=== PATIENT | female | born 1980 | race Caucasian/White ===

== ENCOUNTER 2019-08-13 07:08 | Outpatient (RCR) | payer MEDICAID ==
[~2019-08-13] VITALS: Ht 160 cm; Wt 67.0 kg
[~2019-08-13 07:08] MED LIST: DICY10CA12 PO; ESTR1TAB27 PO; GOLI50DI SQ; LURA40TA3 PO; MAGN400C PO; MELO15TA39 PO; MIRT45TA3 PO; OMEP20CA18 PO
== END 2019-08-13 15:47 | disposition home or self-care (01) ==
LOC: PREOP 07:08
PROVIDERS: ATTEND Urology
DX: Z01.818 Encounter for other preprocedural examination (principal); Z11.59 Encounter for screening for other viral diseases
CPT/HCPCS: 87635

== ENCOUNTER 2019-08-18 06:48 | Day surgery (SDC) | payer MEDICAID ==
[2019-08-18] VITALS (9 sets, daily range): BP systolic 97–119; BP diastolic 61–80
[~2019-08-18] VITALS: Ht 160 cm; Wt 67.0 kg
--- OUTSIDE RECORDS SUMMARY | 2019-08-18 06:53 | XMS REPORT | Continuity of Care Document ---
Author Organization Unknown Address Unknown Phone Unavailable Allergies Active Description Code Type Severity Reaction Onset Reported/Identified Relationship to Patient Clinical Status Yes No Known Drug Allergies [id number] Drug Allergy Unknown N/A 08/10/2019 Medications There is no data. Problems Date Dx Coded Attending Type Code Diagnosis Diagnosed By 03/06/1546 NAHOMI ZHANG MD Ot Z01.8 18 ENCOUNTER FOR OTHER PREPROCEDURAL EXAMIN 03/06/1546 NAHOMI ZHANG MD Ot Z11.5 9 ENCOUNTER FOR SCREENING FOR OTHER VIRAL Procedures There is no data. Results Test Result Range [facility] - 01/29/19 13:16 GLUCOSE 81 mg/dL 65-99 UREA NITROGEN (BUN) 8 mg/dL 7-25 CREATININE 0.76 mg/dL 0.50-1.10 eGFR NON-AFR. CAMEROONIAN 101 mL/min/1.73m2 > OR = 60 eGFR 117 mL/min/1.73m2 > OR = 60 BUN/CREATININE RATIO NOT APPLICABLE (calc) 6-22 SODIUM 140 mmol/L 135-146 POTASSIUM 3.9 mmol/L 3.5-5.3 CHLORIDE 104 mmol/L 98-110 CARBON DIOXIDE 26 mmol/L 20-32 CALCIUM 9.6 mg/dL 8.6-10.2 PROTEIN, TOTAL 7.7 g/dL 6.1-8.1 ALBUMIN 4.9 g/dL 3.6-5.1 GLOBULIN 2.8 g/dL (calc) 1.9-3.7 ALBUMIN/GLOBULIN RATIO 1.8 (calc) 1.0-2. 5 BILIRUBIN, TOTAL 0.4 mg/dL 0.2-1.2 ALKALINE PHOSPHATASE 39 U/L 33-115 AST 28 U/L 10-30 ALT 48 U/L 6-29 CBC - 01/29/19 13:16 WHITE BLOOD CELL COUNT 5.2 Thousand/uL 3 .8-10.8 RED BLOOD CELL COUNT 4.62 Million/uL 3.8 0-5.10 HEMOGLOBIN 14.1 g/dL 11.7-15.5 HEMATOCRIT 41.7 % 35.0-45.0 MCV 90.3 fL 80.0-100.0 MCH 30.5 pg 27.0-33.0 MCHC 33.8 g/dL 32.0-36.0 RDW 12.5 % 11.0-15.0 PLATELET COUNT 169 Thousand/uL 140-400 MPV 13.4 fL 7.5-12.5 ABSOLUTE NEUTROPHILS 2704 cells/uL 1500- 7800 ABSOLUTE LYMPHOCYTES 1950 cells/uL 850-3 900 ABSOLUTE MONOCYTES 426 cells/uL 200-950 ABSOLUTE EOSINOPHILS 78 cells/uL 15-500 ABSOLUTE BASOPHILS 42 cells/uL 0-200 NEUTROPHILS 52 % NRG LYMPHOCYTES 37.5 % NRG MONOCYTES 8.2 % NRG EOSINOPHILS 1.5 % NRG BASOPHILS 0.8 % NRG TSH w/ FREE T4 - 03/24/19 15:06 TSH 1.85 mIU/L NRG T4, FREE 1.2 ng/dL 0.8-1.8 CMP - 03/24/19 15:06 GLUCOSE 94 mg/dL 65-139 UREA NITROGEN (BUN) 14 mg/dL 7-25 CREATININE 0.88 mg/dL 0.50-1.10 eGFR NON-AFR. CAMEROONIAN 85 mL/min/1.73m2 > OR = 60 eGFR 98 mL/min/1.73m2 > OR = 60 BUN/CREATININE RATIO NOT APPLICABLE (calc) 6-22 SODIUM 139 mmol/L 135-146 POTASSIUM 4.3 mmol/L 3.5-5.3 CHLORIDE 103 mmol/L 98-110 CARBON DIOXIDE 29 mmol/L 20-32 CALCIUM 9.7 mg/dL 8.6-10.2 PROTEIN, TOTAL 7.8 g/dL 6.1-8.1 ALBUMIN 5.0 g/dL 3.6-5.1 GLOBULIN 2.8 g/dL (calc) 1.9-3.7 ALBUMIN/GLOBULIN RATIO 1.8 (calc) 1.0-2. 5 BILIRUBIN, TOTAL 0.4 mg/dL 0.2-1.2 ALKALINE PHOSPHATASE 38 U/L 33-115 AST 17 U/L 10-30 ALT 18 U/L 6-29 CBC - 03/24/19 15:06 WHITE BLOOD CELL COUNT 6.7 Thousand/uL 3 .8-10.8 RED BLOOD CELL COUNT 4.43 Million/uL 3.8 0-5.10 HEMOGLOBIN 14.1 g/dL 11.7-15.5 HEMATOCRIT 40.7 % 35.0-45.0 MCV 91.9 fL 80.0-100.0 MCH 31.8 pg 27.0-33.0 MCHC 34.6 g/dL 32.0-36.0 RDW 12.9 % 11.0-15.0 PLATELET COUNT 186 Thousand/uL 140-400 MPV 13.5 fL 7.5-12.5 ABSOLUTE NEUTROPHILS 4027 cells/uL 1500- 7800 ABSOLUTE LYMPHOCYTES 2010 cells/uL 850-3 900 ABSOLUTE MONOCYTES 549 cells/uL 200-950 ABSOLUTE EOSINOPHILS 67 cells/uL 15-500 ABSOLUTE BASOPHILS 47 cells/uL 0-200 NEUTROPHILS 60.1 % NRG LYMPHOCYTES 30.0 % NRG MONOCYTES 8.2 % NRG EOSINOPHILS 1.0 % NRG BASOPHILS 0.7 % NRG VALPROIC ACID/DEPAKOTE - 03/24/19 15:06 VALPROIC ACID 69.6 mg/L 50.0-100.0 GC/CHLAMYDIA (SWAB OR URINE)-RAPID - 06/24 00:00 CHLAMYDIA TRACHOMATIS RNA, TMA NOT DETECTED NOT DETECTED NEISSERIA GONORRHOEAE RNA, TMA NOT DETECTED NOT DETECTED COMMENT NRG CULTURE, GENITAL - 04/09/19 00:00 CULTURE, GENITAL SEE NOTE NRG Coronavirus SARS-CoV-2 SO 2018 - 0 13:10 Coronavirus Ab [Units/volume] in Serum Negative Negative Encounters ACCT No. Visit Date/Time Discharge Status Pt. Type Provider Facility Loc./Unit Complaint [id number] 07/30/2019 12:40:00 07/30/2019 23:59:5 9 CLS Outpatient SASKIA LYNNE APRN [place] [id number] 04/09/2019 11:20:00 Document Registration [id number] 03/24/2019 14:00:00 Document Registration [id number] 01/29/2019 12:40:00 Document Registration [id number] 08/13/2019 07:08:00 020 15:47:00 DIS Outpatient NAHOMI ZHANG MD [facility] PREOP INCONTINENCE [id number] 08/18/2019 08:45:00 P EN Preadmit [facility]
--- NOTE | 2019-08-18 07:12 | Progress Note-Pre Operative ---
Pre-Operative Progress Note H&P Reviewed The H&P was reviewed, patient examined and no changes noted. Date Seen by Provider: August 18, 2019 Time Seen by Provider: 07:11 Date H&P Reviewed: August 18, 2019 Time H&P Reviewed: 07:11 Pre-Operative Diagnosis: SEVERE URGENCY WITH INCONTINENCE AND OAB NAHOMI ZHANG MD August 18, 2019 07:12
[2019-08-18] MEDS: LACTATED RINGERS 1,000 ML IV PRN ×2 (07:20→11:38)
--- NOTE | 2019-08-18 07:20 | Progress Note-Post Operative ---
Post-Operative Progess Note Surgeon (s)/Ironing Worker (s) Surgeon NAHOMI ZHANG MD Ironing Worker: NONE Pre-Operative Diagnosis SEVERE URGENCY WITH INCONTINENCE AND OAB Post-Operative Diagnosis SAME Procedure & Operative Findings Date of Procedure 08/18/19 Procedure Performed/Findings INTRAVESICAL BOTOX INJECTION Anesthesia Type GENERAL Estimated Blood Loss Estimated blood loss (mL): NEGLIGIBLE Specimens/Packing Specimens Removed NONE Packing: NONE NAHOMI ZHANG MD August 18, 2019 07:20
--- NOTE | 2019-08-18 07:22 | Discharge Inst-Urology ---
Discharge Inst-Urology Reconcile Patient Problems Problems Reviewed?: Yes Final Diagnosis SEVERE URGENCY WITH INCONTINENCE AND OAB Patient Instructions/Follow Up Plan/Assessment/Instructions Please make appointment to been seen in office in 4 weeks. Increase oral fluids for 48 hours and then as needed. Diet and Activity as tolerated. If questions or concerns contact your physician Or seek help at emergency department. NAHOMI ZHANG MD August 18, 2019 07:22
[2019-08-18] MEDS ORDERED: ONDANSETRON 4 MG/2 ML (SDV) Z0FRAN ONE ×2 (07:28→07:58)
[2019-08-18] MEDS ORDERED: SCOPOLAMINE 1.5 MG (TRANSDERM-SCOP) PATCH ONE (07:28)
[2019-08-18] MEDS ORDERED: FAMOTIDINE 20MG/2ML IV (PEPCID) ONE (07:28)
[2019-08-18] MEDS ORDERED: FAMOTIDINE 20MG/2ML IV (PEPCID) IV ONE (07:30)
[2019-08-18] MEDS ORDERED: cefTRIAXone FOR IV USE 1,000 MG in WATER (STERILE) FOR INJECTION 10 ML IV ONE (07:30)
[2019-08-18] MEDS ORDERED: SCOPOLAMINE 1.5 MG (TRANSDERM-SCOP) PATCH TOP ONE (07:30)
[2019-08-18] MEDS ORDERED: ONABOTULINUMTOXINA 100 UNIT (BOTOX) VIAL INJ NR (07:30)
[2019-08-18] MEDS ORDERED: ONDANSETRON 4 MG/2 ML (SDV) Z0FRAN IV ONE (07:30)
[2019-08-18] MEDS ORDERED: proPOfol 200 MG/20 ML (DIPRIVAN) VIAL IV ONE (07:58)
[2019-08-18] MEDS ORDERED: fentaNYL INJECTION 100 MCG/2 ML AMP ONE (07:58)
[2019-08-18] MEDS ORDERED: DEXAMETHASONE 10 MG/ML (DECADRON) 1 ML VIAL ONE (07:58)
[2019-08-18] MEDS ORDERED: MIDAZOLAM 2 MG/2 ML (VERSED) VIAL ONE (07:58)
[2019-08-18] MEDS ORDERED: SEVOFLURANE (ULTANE) 15 ML INHAL SOLN ONE (07:58)
[2019-08-18] MEDS ORDERED: LIDOCAINE PF 2% 5 ML (XYLOCAINE) VIAL ONE (07:58)
[2019-08-18] MEDS ORDERED: ONDANSETRON 4 MG/2 ML (SDV) Z0FRAN IVP PRN (10:00)
[2019-08-18] MEDS ORDERED: HYDROmorphone 2 MG/ML VIAL (DILAUDID) IV ONE (10:00)
[2019-08-18] MEDS ORDERED: NITR-65 PO (10:49)
[2019-08-18] MEDS ORDERED: PHEN-640 PO (10:49)
--- NOTE | 2019-08-18 11:20 | NUR ---
pt c/o nausea after drinking water. juan manuel cordero notified. orders rec'd.
[2019-08-18] MEDS ORDERED: ONDANSETRON 4 MG/2 ML (SDV) Z0FRAN IVP ONE (11:45)
--- NOTE | 2019-08-18 12:00 | NUR ---
pt reports nausea improving after zofran, iv fluids et crackers.
--- NOTE | 2019-08-18 13:02 | Anesthesia-General Post-Op ---
General Patient Condition Mental Status/LOC: Same as Preop Cardiovascular: Satisfactory Nausea/Vomiting: Absent Respiratory: Satisfactory Pain: Controlled Complications: Absent Post Op Complications Complications None Follow Up Care/Instructions Patient Instructions None needed. Anesthesia/Patient Condition Patient Condition Patient is doing well, no complaints, stable vital signs, no apparent adverse anesthesia problems. No complications reported per nursing. D/C home per [facility] Criteria: Yes AVTAR COMER CRNA August 18, 2019 13:02
--- NOTE | 2019-08-18 13:44 | OPERATIVE REPORT ---
DATE OF SERVICE: 08/18/2019 PREOPERATIVE DIAGNOSES: Severe urgency with incontinence and overactive bladder. POSTOPERATIVE DIAGNOSES: Severe urgency with incontinence and overactive bladder. OPERATION PERFORMED: Intravesical injection of Botox. SURGEON: Jose J Zhang MD. ANESTHESIA: General. COMPLICATIONS: None. DESCRIPTION OF PROCEDURE: Under satisfactory general anesthesia and the patient in lithotomy position, genitalia were prepped and draped in the usual sterile fashion. Cystoscope was introduced in the bladder and injection of Botox 0.5 mL at that time was started up superior and lateral to the left ureteral orifice working the way inside and then up for 20 sites of injections. There were good results seen cystoscopically. There was minimal bleeding. The bladder was evacuated and the cystoscope was removed. The patient tolerated the procedure and anesthesia well and was sent to recovery room in stable condition. Job ID: [id number] DocumentID: [id number] Dictated Date: 08/18/2019 09:41:27 Chemical Etching Processor Date: 08/18/2019 13:44:01 Dictated By: JOSE J ZHANG MD
== END 2019-08-18 12:30 | disposition home or self-care (01) ==
LOC: SDC 06:48
PROVIDERS: ATTEND Urology
DX: N39.41 Urge incontinence (principal); N32.81 Overactive bladder; Z11.2 Encounter for screening for other bacterial diseases; F31.9 Bipolar disorder, unspecified; F41.9 Anxiety disorder, unspecified; K21.9 Gastro-esophageal reflux disease without esophagitis; Z87.891 Personal history of nicotine dependence; Z79.899 Other long term (current) drug therapy
CPT/HCPCS: 87081